=== PATIENT | female | born 1960 ===

== ENCOUNTER 2021-12-04 08:14 | Outpatient (CLI) | payer OTHER | END 2021-12-04 08:15 | disposition home or self-care (01) | LOC: CSHMAMMO 08:14 | PROVIDERS: ATTEND Nurse Practitioner Family | DX: Z12.31 Encounter for screening mammogram for malignant neoplasm of breast (principal); Z98.890 Other specified postprocedural states; Z80.3 Family history of malignant neoplasm of breast | CPT/HCPCS: 77067 ==